=== PATIENT | female | born 1940 | race Caucasian/White ===

== ENCOUNTER 2017-07-10 10:53 | Outpatient (RCR) | payer MEDICARE, OTHER ==
[~2017-07-10 10:53] MED LIST: ADVAIR 500/501 EA INH; AMBIEN10 MG PO; FUROSEMIDE20 MG PO; LEVAQUIN500 MG PO; LISINOPRIL-HCT1 EAC1 PO; PANTOPRAZOLE SO40 MG PO; VENTOLIN HFA18 GM INH
== END 2017-07-23 ==
LOC: PT 10:53
PROVIDERS: ATTEND Specialist
DX: M79.604 Pain in right leg (principal); M25.561 Pain in right knee; M54.5 Low back pain; M62.81 Muscle weakness (generalized)
CPT/HCPCS: 97110 ×2; 97162; G8981; G8982

== ENCOUNTER → 2018-02-09 | Outpatient (CLI) | payer MEDICARE, OTHER ==
--- NOTE | 2018-02-12 07:20 | Diagnostic Imaging Report ---
Exam: Lumbar spine MRI without IV contrast History: Lower back pain, lumbar disc disease. Comparison studies: None Technique: Sagittal and axial T2 , sagittal T1 and IR, axial spin density oblique and coronal T2. Intravenous contrast: None Findings: Number of lumbar vertebral bodies: 5. Alignment: Mild increased lumbar lordotic curvature. Mild thoracolumbar curvature convex to left with mild lower lumbar curvature convex to the right. Minimal degenerative Grade 1 retrolisthesis of L1 on L2 and L2 on L3. Soft tissues: No T2 hyperintense inflammatory changes. Paraspinal muscles: Moderate symmetric fatty atrophy. Lower thoracic cord: Normal in signal and morphology. The tip of the conus is at L1-L2 . Cauda equina: No masses. No arachnoiditis. Vertebrae: No compression fractures, infection or neoplasm. Degenerative changes: Loss of T2/STIR signal from T12 to S1. T12-L1: Mild loss of disc height. Symmetric disc bulge does not result in significant canal stenosis. Patent foramina. L1-L2: Mild loss of disc height. Minimal retrolisthesis of L1 on L2 with associated uncovered disc/disc bulge and mild facet arthrosis with mild canal stenosis. No significant foraminal stenosis. L2-L3: Mild loss of disc height. Minimal retrolisthesis of L2 on L3 with associated asymmetric right disc osteophyte complex, thickened ligamentum flavum and bilateral facet arthrosis with moderate canal stenosis and right foraminal stenosis and mild left foraminal stenosis. L3-L4: Mild loss of disc height. Disc bulge with left foraminal disc osteophyte complex, thickened ligamentum flavum and moderate bilateral facet arthrosis with mild canal stenosis and mild bilateral foraminal stenosis. L4-L5: Symmetric disc bulge, thickened ligamenta flava and severe bilateral facet arthrosis with severe canal stenosis and mild bilateral foraminal stenosis. L5-S1: Symmetric disc bulge and moderate bilateral facet arthrosis with mild canal stenosis. No significant foraminal stenosis. Additional findings: 2.5 cm left renal cyst. IMPRESSION: 1. Mild multilevel disc degeneration. 2. Degenerative canal stenosis, severe at L4-L5 and moderate at L2-L3. 3. [id number] right L2-L3 degenerative foraminal stenosis. 4. Advanced facet arthrosis from L3 to S1. Signed by: Dr. Frank Mascorro M.D. on 02/12/2018 7:17 AM
== END ==
LOC: MRI 09:35
PROVIDERS: ATTEND Internal Medicine
DX: M54.5 Low back pain (principal); M51.86 Other intervertebral disc disorders, lumbar region
CPT/HCPCS: 72148

== ENCOUNTER → 2018-08-07 | Outpatient (CLI) | payer MEDICARE, OTHER ==
--- NOTE | 2018-08-07 09:44 | Diagnostic Imaging Report ---
MRI of the left shoulder without contrast. History: Shoulder pain. Decreased range of motion. Pain not responding to conservative management Comparison: None Technique: Coronal PD FS, sagital PD FS, and axial PD and PD FS. Findings: Rotator cuff: There is rotator cuff tendinosis with midsubstance degeneration and articular sided fraying involving the anterior fibers of the supraspinatus and infraspinatus tendons at the humeral insertion site. Additionally, low signal intensity foci are seen in the rotator cuff likely due to calcific tendinosis. This is best seen on sagittal series 8 image 7 through 11. No full-thickness rotator cuff tear, muscle atrophy or retraction. Osseous acromion complex: There is a type II acromion with mild lateral downsloping. There is moderate degenerative arthrosis at the acromioclavicular joint with undersurface spurring and narrowing of the supraspinatus tendon outlet. Glenohumeral joint: There is degeneration and fraying of the labrum. The articular cartilage surfaces are within the humeral head is well-seated in the glenoid fossa. Biceps tendon: There is intra-articular biceps tendinosis with fraying at the biceps anchor. Other findings: Negative for muscle denervation or osseous fracture. Impression: Rotator cuff tendinosis with midsubstance degeneration and articular sided fraying involving the anterior fibers of the supraspinatus and infraspinatus tendons at the humeral insertion site. Additionally, low signal intensity foci are seen in the rotator cuff likely due to calcific tendinosis. No full-thickness rotator cuff tear, muscle atrophy or retraction Intra-articular biceps tendinosis with fraying at the biceps anchor. Moderate degenerative arthrosis at the acromioclavicular joint with undersurface spurring and narrowing of the supraspinatus tendon outlet. Signed by: Dr. Philipp Carrasco M.D. on 08/07/2018 9:41 AM
== END ==
LOC: MRI 08:03
PROVIDERS: ATTEND Specialist
DX: S46.092A Other injury of muscle(s) and tendon(s) of the rotator cuff of left shoulder, initial encounter (principal)

== ENCOUNTER → 2018-09-20 | Outpatient (RCR) | payer MEDICARE, OTHER | LOC: PT 08-30 10:43 | PROVIDERS: ATTEND Specialist | DX: M75.92 Shoulder lesion, unspecified, left shoulder (principal); M25.512 Pain in left shoulder; M25.612 Stiffness of left shoulder, not elsewhere classified; M62.81 Muscle weakness (generalized) ==

== ENCOUNTER 2018-10-16 09:35 | Outpatient (RCR) | payer MEDICARE, OTHER | END 2018-10-21 | LOC: PT 09:35 | PROVIDERS: ATTEND Specialist | DX: M75.82 Other shoulder lesions, left shoulder (principal); M25.512 Pain in left shoulder; M25.612 Stiffness of left shoulder, not elsewhere classified; M62.81 Muscle weakness (generalized) | CPT/HCPCS: 97139 ==

== ENCOUNTER 2018-11-19 09:36 | Outpatient (RCR) | payer MEDICARE, OTHER | END 2018-11-20 | LOC: PT 09:36 | PROVIDERS: ATTEND Specialist | DX: M75.02 Adhesive capsulitis of left shoulder (principal); M25.512 Pain in left shoulder ==

== ENCOUNTER 2018-12-06 09:30 | Outpatient (RCR) | payer MEDICARE, OTHER | END 2018-12-21 | LOC: PT 09:30 | PROVIDERS: ATTEND Specialist | DX: M75.02 Adhesive capsulitis of left shoulder (principal); M75.82 Other shoulder lesions, left shoulder; M25.512 Pain in left shoulder; M25.612 Stiffness of left shoulder, not elsewhere classified; M62.81 Muscle weakness (generalized) | CPT/HCPCS: 97139 ==

== ENCOUNTER → 2019-10-22 | Outpatient (RCR) | payer OTHER, MEDICARE | LOC: PT 09-24 13:51 | PROVIDERS: ATTEND Orthopaedic Surgery | DX: Z98.890 Other specified postprocedural states (principal); M25.512 Pain in left shoulder; M25.612 Stiffness of left shoulder, not elsewhere classified; M62.81 Muscle weakness (generalized) ==

== ENCOUNTER 2019-11-20 10:00 | Outpatient (RCR) | payer MEDICARE, OTHER | END 2019-11-21 | LOC: PT 10:00 | PROVIDERS: ATTEND Orthopaedic Surgery | DX: Z98.890 Other specified postprocedural states (principal); M25.512 Pain in left shoulder; M25.612 Stiffness of left shoulder, not elsewhere classified; M62.81 Muscle weakness (generalized) | CPT/HCPCS: 97139 ==

== ENCOUNTER → 2020-02-21 | Outpatient (RCR) | payer MEDICARE, OTHER | LOC: PT 01-30 13:33 | PROVIDERS: ATTEND Neurological Surgery | DX: G89.18 Other acute postprocedural pain (principal); M54.16 Radiculopathy, lumbar region; M62.830 Muscle spasm of back; M62.81 Muscle weakness (generalized); Z98.890 Other specified postprocedural states; R53.81 Other malaise ==

== ENCOUNTER 2020-03-06 09:59 | Outpatient (RCR) | payer MEDICARE, OTHER | END 2020-03-23 | LOC: PT 09:59 | PROVIDERS: ATTEND Neurological Surgery | DX: G89.18 Other acute postprocedural pain (principal); Z98.890 Other specified postprocedural states; R53.81 Other malaise; M54.16 Radiculopathy, lumbar region; M62.830 Muscle spasm of back ==

== ENCOUNTER 2022-03-31 14:58 | Emergency (ER) | payer MEDICARE, OTHER ==
[~2022-03-31] VITALS: Ht 157.5 cm; Wt 91.2 kg
[2022-03-31] MEDS ORDERED: SODIUM CHLORIDE 0.9% 1000ML 1,000 ML IV SCH (15:45)
[2022-03-31] MEDS ORDERED: IOPAMIDOL 370 MG/ML 100 ML INFUS..BTL INJ ONE (15:46)
[2022-03-31 17:24] VITALS: BP 125/56
== END 2022-03-31 17:40 | disposition home or self-care (01) ==
LOC: FSED 15:02
DX: K21.9 Gastro-esophageal reflux disease without esophagitis (principal); K44.9 Diaphragmatic hernia without obstruction or gangrene; R10.12 Left upper quadrant pain; I10 Essential (primary) hypertension; J45.909 Unspecified asthma, uncomplicated
CPT/HCPCS: 71260; 74177; 80048; 80076; 81003; 82553; 84484; 85025; 93005; 99284; Q9967

== ENCOUNTER → 2022-10-27 | Outpatient (CLI) | payer MEDICARE | LOC: RAD 09:52 | PROVIDERS: ATTEND Internal Medicine | DX: Z01.818 Encounter for other preprocedural examination (principal) | CPT/HCPCS: 71046 ==